=== PATIENT | male | born 1975 | race Hispanic/Latino ===

== ENCOUNTER 2020-03-29 17:47 | Emergency (ER) | payer OTHER ==
[2020-03-29] MEDS ORDERED: KETOROLAC TROMETHAMINE 60 MG/2 ML VIAL ONE (18:03)
== END 2020-03-29 18:51 ==
LOC: EDH 17:47
DX: S99.921A Unspecified injury of right foot, initial encounter (principal); Z88.8 Allergy status to other drugs, medicaments and biological substances; Z72.0 Tobacco use; X58.XXXA Exposure to other specified factors, initial encounter; Y93.89 Activity, other specified; Y92.89 Other specified places as the place of occurrence of the external cause; Y99.8 Other external cause status
CPT/HCPCS: 73630; 99283; J1885